=== PATIENT | male | born 1995 | race African-American/Black ===

== ENCOUNTER 2020-11-18 06:20 | Emergency (ER) | payer SELFPAY ==
[~2020-11-18] VITALS: Ht 180.3 cm; Wt 74.0 kg
[2020-11-18] MEDS ORDERED: PROPOFOL 200MG/20ML VIAL IV ONE (06:45)
[2020-11-18] MEDS ORDERED: HYDROMORPHONE HCL/PF 2MG/ML CPJ IV ONE (06:45)
[2020-11-18] MEDS ORDERED: DICL75TA5 PO (07:32)
[2020-11-18 07:35] VITALS: BP 118/89
== END 2020-11-18 07:48 | disposition home or self-care (01) ==
LOC: ER 06:20
DX: R51.9 Headache, unspecified (principal)
CPT/HCPCS: 70450; 72125; 99285; Z7610; J1170